=== PATIENT | female | born 1975 | race African-American/Black ===

== ENCOUNTER 2019-04-20 01:41 | Emergency (ER) | payer BC, MEDICAID ==
[~2019-04-20] VITALS: Ht 177.8 cm; Wt 68.2 kg
[~2019-04-20 01:41] MED LIST: ALBU17AE27 IH
[2019-04-20 03:00] VITALS: BP 139/88
[2019-04-20] MEDS ORDERED: ALBUTEROL SULFATE HFA 90 MCG/PUFF 8 GM INHALER IH ONE (03:30)
== END 2019-04-20 03:28 | disposition home or self-care (01) ==
LOC: EMS 01:42
DX: J45.901 Unspecified asthma with (acute) exacerbation (principal); I10 Essential (primary) hypertension; F41.9 Anxiety disorder, unspecified; F12.90 Cannabis use, unspecified, uncomplicated; Z98.890 Other specified postprocedural states; Z79.899 Other long term (current) drug therapy; Z91.010 Allergy to peanuts; Z91.018 Allergy to other foods
CPT/HCPCS: 94640; J3535

== ENCOUNTER 2019-10-28 03:52 | Emergency (ER) | payer BC ==
[~2019-10-28] VITALS: Ht 177.8 cm; Wt 68.2 kg
[2019-10-28] MEDS ORDERED: SODIUM CHLORIDE 0.9% 1,000 ML IV ONE (04:45)
[2019-10-28] MEDS ORDERED: ACETAMINOPHEN 325 MG TABLET PO ONE (04:45)
[2019-10-28 05:02] LABS: BASOPHILS % (AUTO) 1.2 % (0.0-2.0); EOSINOPHILS % (AUTO) 4.8 % (1.0-6.0); HEMATOCRIT 37.3 % (36-46); HEMOGLOBIN 11.8 g/dL (12.0-16.0); LYMPHOCYTES # (AUTO) 1.8 K/uL (1.0-4.8); LYMPHOCYTES % (AUTO) 25.3 % (22.0-44.0); MEAN CORPUSCULAR HEMOGLOBIN 23.7 pg (26.0-34.0); MEAN CORPUSCULAR HGB CONC 31.6 G/dL (31.0-37.0); MEAN CORPUSCULAR VOLUME 75 fL (80-100); MONOCYTES # (AUTO) 0.9 K/uL (0.1-1.0); MONOCYTES % (AUTO) 12.3 % (2.0-9.0); NEUTROPHILS % (AUTO) 56.4 % (40.0-70.0); PLATELET COUNT (AUTO) 224 K/uL (150-450); RED BLOOD CELL COUNT(AUTO) 4.98 MIL/uL (4.00-5.20)
[2019-10-28 05:04] LABS: ANION GAP 5 mmol/L (8-16); CALCIUM, TOTAL 8.7 mg/dL (8.8-10.5); CARBON DIOXIDE 28 mmol/L (22-29); CHLORIDE 102 mmol/L (98-107); GLOMERULAR FILTR. RATE CALC > 60 mL/min (>60); GLUCOSE,RANDOM 96 mg/dL (70-110); POTASSIUM 3.5 mmol/L (3.5-5.1); SODIUM SERUM 135 mmol/L (136-145); UREA NITROGEN, BLOOD 22 mg/dL (7-18)
[2019-10-28 05:09] LABS: APPEARANCE,URINE CLEAR (CLEAR); BILIRUBIN,URINE NEGATIVE (NEGATIVE); GLUCOSE, URINE (UA) NEGATIVE (NEGATIVE); KETONES,URINE NEGATIVE (NEGATIVE); LEUKOCYTE ESTERASE ,URINE NEGATIVE (NEGATIVE); NITRATE,URINE NEGATIVE (NEGATIVE); OCCULT BLOOD,URINE MODERATE (NEGATIVE); PH,URINE 5.5 (5.0-8.0); PROTEIN,URINE NEGATIVE (NEGATIVE)
[2019-10-28 05:10] LABS: ALANINE AMINOTRANSFERASE 20 U/L (12-78); ALBUMIN 3.4 g/dL (3.4-5.0); ALKALINE PHOSPHATASE 46 U/L (46-116); ASPARTATE AMINOTRANSFERASE 16 U/L (15-37); BILIRUBIN,TOTAL 0.4 mg/dL (0.1-1.0); TOTAL PROTEIN, SERUM 6.9 g/dL (6.4-8.2)
[2019-10-28 05:17] VITALS: BP 131/99
[2019-10-28 05:37] LABS: BACTERIA,URINE Few /HPF (None Seen); SQUAMOUS EPITHELIAL CELL,UR Few /LPF (None Seen); WBC,URINE 0-2 /HPF (0-5)
[2019-10-28] MEDS ORDERED: KETOROLAC TROMETHAMINE 10 MG TABLET PO ONE (05:45)
== END 2019-10-28 05:59 | disposition home or self-care (01) ==
LOC: EMS 03:52
DX: S39.012A Strain of muscle, fascia and tendon of lower back, initial encounter (principal); I10 Essential (primary) hypertension; J45.909 Unspecified asthma, uncomplicated; F41.9 Anxiety disorder, unspecified; F12.90 Cannabis use, unspecified, uncomplicated; Z91.018 Allergy to other foods; Z79.899 Other long term (current) drug therapy; X50.9XXA Other and unspecified overexertion or strenuous movements or postures, initial encounter; Y93.89 Activity, other specified; Y92.89 Other specified places as the place of occurrence of the external cause; Y99.8 Other external cause status
CPT/HCPCS: 36415; 80053; 81001; 84703; 85025; 96360; 99283; J7030

== ENCOUNTER 2020-03-12 09:21 | Emergency (ER) | payer BC ==
[~2020-03-12] VITALS: Ht 177.8 cm; Wt 71.8 kg
[2020-03-12 11:43] VITALS: BP 142/90
== END 2020-03-12 11:59 | disposition home or self-care (01) ==
LOC: EMS 09:29
DX: I10 Essential (primary) hypertension (principal); F41.9 Anxiety disorder, unspecified; J45.909 Unspecified asthma, uncomplicated; F12.90 Cannabis use, unspecified, uncomplicated; Z91.018 Allergy to other foods
CPT/HCPCS: 99281; Z7502

== ENCOUNTER 2022-02-15 13:46 | Emergency (ER) | payer OTHER ==
[~2022-02-15] VITALS: Ht 177.8 cm; Wt 72.7 kg
[~2022-02-15 13:46] MED LIST changes: -ALBU17AE27 IH; +ALBU8HFA IH; +LORA-1000 PO
[2022-02-15 13:52] VITALS: BP 146/91
== END 2022-02-15 15:45 | disposition left against medical advice (07) ==
LOC: EMS 13:59
DX: R51.9 Headache, unspecified (principal); Z53.21 Procedure and treatment not carried out due to patient leaving prior to being seen by health care provider

== ENCOUNTER 2022-02-16 08:30 | Emergency (ER) | payer OTHER ==
[~2022-02-16] VITALS: Ht 177.8 cm; Wt 72.7 kg
[2022-02-16] MEDS ORDERED: ACETAMINOPHEN 500 MG TABLET PO ONE (09:00)
[2022-02-16 09:11] VITALS: BP 133/78
== END 2022-02-16 09:15 | disposition home or self-care (01) ==
LOC: EMS 08:35
DX: G44.209 Tension-type headache, unspecified, not intractable (principal); F41.9 Anxiety disorder, unspecified; J45.909 Unspecified asthma, uncomplicated; K59.00 Constipation, unspecified; I10 Essential (primary) hypertension; F12.90 Cannabis use, unspecified, uncomplicated; Z98.890 Other specified postprocedural states; Z02.79 Encounter for issue of other medical certificate; Z91.018 Allergy to other foods
CPT/HCPCS: 99282; Z7502; Z7610

== ENCOUNTER 2022-04-12 02:49 | Emergency (ER) | payer OTHER ==
[~2022-04-12] VITALS: Ht 175.3 cm; Wt 77.3 kg
[2022-04-12 07:11] VITALS: BP 148/98
== END 2022-04-12 07:26 | disposition home or self-care (01) ==
LOC: EMS 02:51
DX: R07.89 Other chest pain (principal); F41.9 Anxiety disorder, unspecified; J45.909 Unspecified asthma, uncomplicated; K59.00 Constipation, unspecified; I10 Essential (primary) hypertension; F12.90 Cannabis use, unspecified, uncomplicated; Z91.010 Allergy to peanuts; Z91.018 Allergy to other foods; Z98.890 Other specified postprocedural states; Y09 Assault by unspecified means
CPT/HCPCS: 71046; 99283

== ENCOUNTER 2022-04-21 11:40 | Emergency (ER) | payer OTHER ==
[~2022-04-21] VITALS: Ht 175.3 cm; Wt 77.3 kg
[2022-04-21] MEDS ORDERED: LISI-658 PO (11:55)
[2022-04-21] MEDS ORDERED: KETOROLAC TROMETHAMINE 30 MG/ML VIAL IVP ONE (13:15)
[2022-04-21] MEDS ORDERED: SODIUM CHLORIDE 0.9% 1,000 ML IV ONE (13:15)
[2022-04-21] MEDS ORDERED: DiphenhydrAMINE HCL 50 MG/ML VIAL IVP ONE (13:15)
[2022-04-21] MEDS ORDERED: METOCLOPRAMIDE HCL 5 MG/ML 2 ML VIAL IVP ONE (13:15)
[2022-04-21 15:14] VITALS: BP 145/77
== END 2022-04-21 15:17 | disposition home or self-care (01) ==
LOC: EMS 11:40
DX: G44.209 Tension-type headache, unspecified, not intractable (principal); F41.9 Anxiety disorder, unspecified; J45.909 Unspecified asthma, uncomplicated; I10 Essential (primary) hypertension; F12.90 Cannabis use, unspecified, uncomplicated; Z98.890 Other specified postprocedural states; Z91.018 Allergy to other foods
CPT/HCPCS: 99285; 96361; 96374; 96375; J1200; J1885; J2765; J7030

== ENCOUNTER 2022-10-14 05:55 | Emergency (ER) | payer OTHER ==
[~2022-10-14] VITALS: Ht 175.3 cm; Wt 72.0 kg
[~2022-10-14 05:55] MED LIST changes: +ALBU18HF12 IH; -ALBU8HFA IH; +BACL10TA PO; +IBUP-1554 PO; +LISI-658 PO
[2022-10-14 06:04] VITALS: TEMP 98.5
[2022-10-14] MEDS ORDERED: SODIUM CHLORIDE 0.9% 500 ML IV ONE (07:30)
[2022-10-14] MEDS ORDERED: DiphenhydrAMINE HCL 50 MG/ML VIAL IVP ONE (07:30)
[2022-10-14] MEDS ORDERED: MethylPREDNISolone SOD SUCC 125 MG/2 ML VIAL IVP ONE (07:30)
[2022-10-14 11:41] VITALS: BP 135/88; PULSE 86; RESP 16
[2022-10-14] MEDS ORDERED: PRED-554 PO (12:12)
[2022-10-14] MEDS ORDERED: DIPH50 PO (12:13)
== END 2022-10-14 12:32 | disposition home or self-care (01) ==
LOC: EMS 05:58
DX: T78.40XA Allergy, unspecified, initial encounter (principal); F41.9 Anxiety disorder, unspecified; J45.909 Unspecified asthma, uncomplicated; I10 Essential (primary) hypertension; F12.90 Cannabis use, unspecified, uncomplicated; Z98.890 Other specified postprocedural states; X58.XXXA Exposure to other specified factors, initial encounter
CPT/HCPCS: 99284; 96374; 96361; 96375; J1200; J2930; J7040

== ENCOUNTER 2022-10-22 11:50 | Emergency (ER) | payer OTHER ==
[~2022-10-22] VITALS: Ht 175.3 cm; Wt 71.4 kg
[~2022-10-22 11:50] MED LIST changes: +DIPH50 PO; +PRED-554 PO
[2022-10-22 12:24] VITALS: BP 158/97; PULSE 87; RESP 16; TEMP 99.6
[2022-10-22] MEDS ORDERED: AMLO-258 PO ×2 (14:41→21:09)
[2022-10-22] MEDS ORDERED: LORA10TA7 PO ×2 (14:41→21:09)
[2022-10-22] MEDS ORDERED: PRED-554 PO ×2 (14:41→21:09)
[2022-10-22 14:55] LABS: BASOPHILS % (AUTO) 0.8 % (0.0-2.0); EOSINOPHILS % (AUTO) 0 % (1.0-6.0); HEMATOCRIT 34.8 % (36-46); HEMOGLOBIN 10.9 g/dL (12.0-16.0); LYMPHOCYTES # (AUTO) 0.9 K/uL (1.0-4.8); LYMPHOCYTES % (AUTO) 16.5 % (22.0-44.0); MEAN CORPUSCULAR HEMOGLOBIN 24.1 pg (26.0-34.0); MEAN CORPUSCULAR HGB CONC 31.5 G/dL (31.0-37.0); MEAN CORPUSCULAR VOLUME 77 fL (80-100); MONOCYTES # (AUTO) 0.9 K/uL (0.1-1.0); MONOCYTES % (AUTO) 16.5 % (2.0-9.0); NEUTROPHILS # (AUTO) 3.7 K/uL (1.8-7.7); NEUTROPHILS % (AUTO) 66.2 % (40.0-70.0); PLATELET COUNT (AUTO) 248 K/uL (150-450); RED BLOOD CELL COUNT(AUTO) 4.53 MIL/uL (4.00-5.20); RED CELL DISTRIBUTION WIDTH 14.7 % (11.5-14.5); WHITE BLOOD COUNT (AUTO) 5.5 K/uL (4.5-11.0)
[2022-10-22 15:03] LABS: ANION GAP 15 mmol/L (8-16); CARBON DIOXIDE 31 mmol/L (22-29); CHLORIDE 104 mmol/L (98-107); CREATININE 1.04 mg/dL (0.60-1.30); GLOMERULAR FILTR. RATE CALC > 60 mL/min (>60); GLUCOSE,RANDOM 82 mg/dL (70-110); POTASSIUM 4.3 mmol/L (3.5-5.1); SODIUM SERUM 150 mmol/L (136-145); UREA NITROGEN, BLOOD 25 mg/dL (7-18)
[2022-10-22 15:09] LABS: ALANINE AMINOTRANSFERASE 18 U/L (12-78); ALBUMIN 2.3 g/dL (3.4-5.0); ALKALINE PHOSPHATASE 47 U/L (46-116); ASPARTATE AMINOTRANSFERASE 17 U/L (15-37); BILIRUBIN,TOTAL 0.4 mg/dL (0.1-1.0)
[2022-10-22 15:10] LABS: RBC MORPHOLOGY COMMENT NORMAL RBC MORPH
[2022-10-22 15:12] LABS: TROPONIN I-HIGH SENSITIVITY 14 ng/L (<51)
== END 2022-10-22 15:41 | disposition home or self-care (01) ==
LOC: EMS 12:04
DX: T78.40XA Allergy, unspecified, initial encounter (principal); I10 Essential (primary) hypertension; F41.9 Anxiety disorder, unspecified; J45.909 Unspecified asthma, uncomplicated; F12.90 Cannabis use, unspecified, uncomplicated; Z98.890 Other specified postprocedural states; Z91.018 Allergy to other foods; X58.XXXA Exposure to other specified factors, initial encounter
CPT/HCPCS: 80053; 84484; 84703; 85025; 99283

== ENCOUNTER 2022-10-28 21:39 | Emergency (ER) | payer OTHER ==
[~2022-10-28] VITALS: Ht 175.3 cm; Wt 75.0 kg
[~2022-10-28 21:39] MED LIST changes: +AMLO-258 PO; -BACL10TA PO; -IBUP-1554 PO; -LISI-658 PO; -LORA-1000 PO; +LORA10TA7 PO
[2022-10-28 22:02] VITALS: TEMP 99
[2022-10-28 22:44] LABS: APPEARANCE,URINE HAZY (CLEAR); BILIRUBIN,URINE NEGATIVE (NEGATIVE); COLOR,URINE LIGHT ORANGE (YELLOW); GLUCOSE, URINE (UA) NEGATIVE (NEGATIVE); KETONES,URINE NEGATIVE (NEGATIVE); LEUKOCYTE ESTERASE ,URINE LARGE (NEGATIVE); NITRATE,URINE NEGATIVE (NEGATIVE); OCCULT BLOOD,URINE LARGE (NEGATIVE); PROTEIN,URINE 300-600,SEE CONFIRM mg/dL (NEGATIVE); SPECIFIC GRAVITIY, URINE 1.014 (1.003-1.030); UROBILINOGEN,URINE <=1.0 mg/dL (<=1.0)
[2022-10-28 22:53] LABS: BACTERIA,URINE Moderate /HPF (None Seen); RBC,URINE >100 /HPF (0-2); WBC,URINE >100 /HPF (0-5)
[2022-10-28 22:55] LABS: SULFOSALICYLIC ACID,URINE 4+ (Negative)
[2022-10-28] MEDS ORDERED: PHEN-674 PO (23:59)
[2022-10-28] MEDS ORDERED: CEPH-558 PO (23:59)
[2022-10-29] MEDS ORDERED: HYDROCODONE/ACETAMINOPHEN 5-325 MG TABLET PO ONE
[2022-10-29] MEDS ORDERED: CefTRIAXone SODIUM 1 GM/VIAL IM ONE
[2022-10-29] MEDS ORDERED: LIDOCAINE/PF 1% 2 ML VIAL IM ONE
[2022-10-29 00:29] VITALS: BP 145/91; PULSE 92; RESP 17
== END 2022-10-29 01:30 | disposition home or self-care (01) ==
LOC: EMS 21:41
DX: N39.0 Urinary tract infection, site not specified (principal); F41.9 Anxiety disorder, unspecified; J45.909 Unspecified asthma, uncomplicated; I10 Essential (primary) hypertension; F12.90 Cannabis use, unspecified, uncomplicated; Z98.890 Other specified postprocedural states; Z91.018 Allergy to other foods
CPT/HCPCS: 99283; 81001; 87086; 87186; 96372; J0696; J3490; 81002

== ENCOUNTER 2022-11-22 14:37 | Emergency (ER) | payer OTHER ==
[~2022-11-22] VITALS: Ht 175.3 cm; Wt 68.2 kg
[~2022-11-22 14:37] MED LIST changes: +CEPH-558 PO; +PHEN-674 PO
[2022-11-22 14:40] VITALS: TEMP 98.8
[2022-11-22 15:13] LABS: BASOPHILS % (AUTO) 0.4 % (0.0-2.0); EOSINOPHILS % (AUTO) 0 % (1.0-6.0); HEMATOCRIT 28.3 % (36-46); HEMOGLOBIN 9.3 g/dL (12.0-16.0); LYMPHOCYTES # (AUTO) 1.2 K/uL (1.0-4.8); LYMPHOCYTES % (AUTO) 7.4 % (22.0-44.0); MEAN CORPUSCULAR HEMOGLOBIN 24.4 pg (26.0-34.0); MEAN CORPUSCULAR HGB CONC 32.7 G/dL (31.0-37.0); MEAN CORPUSCULAR VOLUME 75 fL (80-100); MONOCYTES # (AUTO) 1.3 K/uL (0.1-1.0); MONOCYTES % (AUTO) 8.1 % (2.0-9.0); NEUTROPHILS # (AUTO) 13.5 K/uL (1.8-7.7); NEUTROPHILS % (AUTO) 84.1 % (40.0-70.0); PLATELET COUNT (AUTO) 245 K/uL (150-450); RED CELL DISTRIBUTION WIDTH 14.7 % (11.5-14.5); WHITE BLOOD COUNT (AUTO) 16.1 K/uL (4.5-11.0)
[2022-11-22 15:21] LABS: CALCIUM, TOTAL 7.7 mg/dL (8.8-10.5); CREATININE 1.67 mg/dL (0.60-1.30); POTASSIUM 4.4 mmol/L (3.5-5.1)
[2022-11-22 15:27] LABS: ALBUMIN 1.9 g/dL (3.4-5.0); BILIRUBIN,TOTAL 0.2 mg/dL (0.1-1.0); TOTAL PROTEIN, SERUM 5.6 g/dL (6.4-8.2)
[2022-11-22 16:14] LABS: RBC MORPHOLOGY COMMENT ABNORMAL RBC MORPH
[2022-11-22] MEDS: SODIUM CHLORIDE 0.9% 1,000 ML IV ONE ×2 (16:16→16:37)
[2022-11-22 16:18] LABS: APPEARANCE,URINE HAZY (CLEAR); BILIRUBIN,URINE NEGATIVE (NEGATIVE); COLOR,URINE YELLOW (YELLOW); GLUCOSE, URINE (UA) NEGATIVE (NEGATIVE); KETONES,URINE NEGATIVE (NEGATIVE); LEUKOCYTE ESTERASE ,URINE LARGE (NEGATIVE); NITRATE,URINE NEGATIVE (NEGATIVE); OCCULT BLOOD,URINE LARGE (NEGATIVE); PROTEIN,URINE 300-600,SEE CONFIRM mg/dL (NEGATIVE); SPECIFIC GRAVITIY, URINE 1.014 (1.003-1.030); UROBILINOGEN,URINE <=1.0 mg/dL (<=1.0)
[2022-11-22 16:30] LABS: BACTERIA,URINE Few /HPF (None Seen); RBC,URINE 26-50 /HPF (0-2); SQUAMOUS EPITHELIAL CELL,UR Few /LPF (None Seen); SULFOSALICYLIC ACID,URINE 3+ (Negative); WBC,URINE 51-100 /HPF (0-5)
[2022-11-22] MEDS ORDERED: SULFAMETHOX/TRIMETH DS 800-160 MG/TABLET PO ONE (17:30)
[2022-11-22] MEDS ORDERED: CefTRIAXone 1 GM/DEXTROSE 50 ML IV ONE (17:30)
[2022-11-22] MEDS ORDERED: SULF-261 PO (17:32)
[2022-11-22] MEDS ORDERED: PHEN-674 PO (17:32)
[2022-11-22] MEDS ORDERED: DOCU-385 PO (17:32)
[2022-11-22 18:34] VITALS: BP 124/76; PULSE 74; RESP 18
== END 2022-11-22 18:38 | disposition home or self-care (01) ==
LOC: EMS 14:37
DX: N39.0 Urinary tract infection, site not specified (principal); I31.39 Other pericardial effusion (noninflammatory); F41.9 Anxiety disorder, unspecified; J45.909 Unspecified asthma, uncomplicated; I10 Essential (primary) hypertension; F12.90 Cannabis use, unspecified, uncomplicated; Z98.890 Other specified postprocedural states; Z91.018 Allergy to other foods
CPT/HCPCS: 99285; 74176; 96365; 96361; 80053; 81001; 84703; 85025; 36415; 87086; 87186; J0696; J7030; 81002